=== PATIENT | male | born 1980 | race Caucasian/White ===

== ENCOUNTER → 2020-11-21 | Outpatient (CLI) | payer OTHER, BC ==
--- NOTE | 2020-11-21 20:18 | CONS ---
CONSULTATION REASON FOR CONSULTATION: Sleep apnea. This is a 40-year-old male patient noted by his to snore and to quit breathing for extended periods of time; and for that reason, he was referred to me. The patient is having some degree of sleepiness and tiredness, yet this is not considerably severe. His current [place] score is 10. 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 He does not fall asleep while driving, and whenever busy at work he does not fall asleep and he is able to function reasonably well. He goes to bed around 9:30 p.m., wakes up at 4:20 a.m. in the morning. He does not have any major hypersomnia or sleepiness. He prefers to sleep on his side. He is unable to sleep on his back, as that position is quite uncomfortable. He grinds his teeth overnight. No nocturnal heartburn, chest pain or shortness of breath. He wakes up probably once or twice in the middle of the night to utilize the bathroom. Weight is up by around 75 pounds over the past 10 years. He drinks a cup of coffee in the morning. He does not consume an excessive amount of caffeinated beverages or energy drinks. He is known to have no cardiovascular disease. PAST MEDICAL HISTORY: Negative. PAST SURGICAL HISTORY: Appendectomy. DRUG ALLERGIES: NOT KNOWN. OUTPATIENT MEDICATION: Outpatient medication includes testosterone injections once a month. Last treatment was 3 weeks ago. SOCIAL HISTORY: Nonsmoker. Drinks alcohol socially. No history of substance abuse. FAMILY HISTORY: Mother has RA. Father has hypertension. No sleep apnea in the family. REVIEW OF SYSTEMS: Fourteen-point review of systems was done. Positive for grinding. Negative for insomnia. Negative for choking or gasping for air. Negative for any restlessness in the lower extremities. No sleepwalking or sleeptalking. No anxiety. No depression. No heartburn. No panic attacks. PHYSICAL EXAMINATION: VITAL SIGNS: BP is 104/72, pulse 88, respirations 16, temperature 98.0. Saturation 97% on room air. Height is 6 feet 1 inch, weight is 305 and BMI is 40.2. [place] score is 10. Neck size is 18-1/2 inches. GENERAL APPEARANCE: Calm, comfortable. HEAD: Atraumatic, normocephalic. NECK: Supple. No JVD. No goiter or neck masses. Mallampati class IV. Evidence of grinding of the teeth. LUNGS: Diminished; otherwise clear. HEART: Heart sounds are regular rate and rhythm. Normal S1, S2. No S3, S4. No murmurs. ABDOMEN: Soft, nontender. No organomegaly. EXTREMITIES: No edema. No cyanosis or clubbing. IMPRESSION: 1. Hypersomnia, under investigation with a high suspicion for obstructive sleep apnea based on his history and anatomic features. 2. Grinding of the teeth. 3. Obesity with a BMI of 40.2. PLAN: 1. Encourage weight loss. 2. Continue sleeping on the side. 3. Sleep hygiene measures in general have been adequate for this patient. 4. Proceed with a home sleep study to evaluate this patient for sleep breathing disorder. There is a high likelihood that the patient may have an underlying obstructive sleep apnea; the severity to be determined during the home sleep study. 5. Will continue to follow. MMSYLVIAL / KATHIN: [id number] /
== END ==
LOC: SLEEP 14:48
PROVIDERS: ATTEND Internal Medicine Critical Care Medicine
DX: G47.10 Hypersomnia, unspecified (principal); E66.9 Obesity, unspecified; Z68.41 Body mass index [BMI] 40.0-44.9, adult; G47.63 Sleep related bruxism
CPT/HCPCS: 99211

== ENCOUNTER → 2021-03-27 | Outpatient (CLI) | payer OTHER, BC ==
--- NOTE | 2021-03-27 17:04 | PN ---
PROGRESS NOTE This is a 40-year-old male patient coming in for a PAP compliance check. The patient was quite symptomatic from obstructive sleep apnea. He was having loud snoring. He was quite fatigued and tired and sleepy during the day. Based on that, the patient was given a home sleep study and the patient was found to have mild to moderate obstructive sleep apnea with an AHI of 15. The patient was offered APAP therapy. The patient is coming in today for a compliancy check. He reports there is improvement in his sleep quality and he wants to improve his CPAP compliancy further. Based on a 30-day compliancy data collection, the patient has used his machine 26 out of the past 30 days. His CPAP use for more than 4 hours is 19/30, which is approaching 65%. Average CPAP use while on CPAP is 5 hours. AHI is down to 4.2. Leak is on the order of 29 L/minute and the patient's average pressure delivered by the machine is around 14 cm of water. He is currently using an AirFit F20 large-sized full-face mask. He is interested in other masks, knowing that he tries to sleep on his side, and the full- face mask that he is using is affecting his ability to sleep on his side because of leaks around the mask itself. His weight has been essentially stable, with a few pounds' weight gain since his last evaluation. Nevertheless, he reports clinical improvement while on CPAP therapy. No new complaints otherwise for now. REVIEW OF SYSTEMS: Fourteen-point review of system was done. Positive findings are all mentioned in the history of present illness. PHYSICAL EXAMINATION: VITAL SIGNS: BP is 147/76, pulse 82, respiratory rate 16, temperature 97.3. BMI 40.7. Weight is 309. Height is 6 feet 1 inch. GENERAL APPEARANCE: Calm, comfortable. HEAD: Atraumatic, normocephalic. NECK: Supple. No JVD. No goiter or neck masses. Mallampati class 4. LUNGS: Diminished. Otherwise clear. HEART: Heart sounds are regular rate and rhythm. Normal S1, S2. No S3, S4. No murmurs. ABDOMEN: Soft, nontender. No organomegaly. EXTREMITIES: No edema. No cyanosis or clubbing. IMPRESSION: 1. Symptomatic obstructive sleep apnea, AHI of 15, currently on APAP with adequate clinical response. Compliance needs to be further optimized. 2. Chronic hypersomnia, improved. 3. Grinding of the teeth. 4. Obesity with a BMI of 40.2. PLAN: 1. Continue CPAP therapy with an APAP mode, pressure minimum of 5, maximum of 15. 2. Will change the mask interface. Will offer the patient an AirFit F30 small-sized full-face mask. This mask was tried in the office and the patient gave us excellent feedback and he is willing to try it out and let us know if this is something that he would like to use in the future. I think along with this change in mask interface the patient's compliance is going to further improve. Will do the appropriate adjustments. The patient will see me back in followup in a year's time. I anticipate further improvement in his sleep quality and will continue to follow. MATILDAL / IJN: [id number] /
== END ==
LOC: SLEEP 14:38
PROVIDERS: ATTEND Internal Medicine Critical Care Medicine
DX: G47.33 Obstructive sleep apnea (adult) (pediatric) (principal); E66.9 Obesity, unspecified; Z68.41 Body mass index [BMI] 40.0-44.9, adult; G47.63 Sleep related bruxism; Z99.89 Dependence on other enabling machines and devices

== ENCOUNTER → 2021-07-06 | Outpatient (CLI) | payer OTHER, BC ==
--- NOTE | 2021-07-07 15:35 | US ---
EXAMINATION TYPE: US thyroid st tissue head/neck DATE OF EXAM: 07/06/2021 COMPARISON: NONE CLINICAL HISTORY: R59.0 Localized enlarged lymph nodes. Palpable posterior left ear x 4 weeks. Covid booster x 3 weeks. Area of concern scanned. Lymph node visualized with short axis= 0.6 cm. IMPRESSION: Benign-appearing lymph node at the level of the posterior left tear, site of patient's c linical abnormality, limited scan
== END | disposition home or self-care (01) ==
LOC: RADUSWWP 16:11
PROVIDERS: ATTEND Family Medicine
DX: R59.0 Localized enlarged lymph nodes (principal)
CPT/HCPCS: 76536

== ENCOUNTER → 2022-05-15 | Outpatient (CLI) | payer BC ==
--- NOTE | 2022-05-15 16:40 | US ---
EXAMINATION TYPE: US scrotum with doppler. Grayscale and color Doppler Duplex imaging performed of t nnamdi scrotum. DATE OF EXAM: 05/15/2022 COMPARISON: NONE CLINICAL HISTORY: E29.1 TESTICULAR HYPOFUNCTION. Pt states low testosterone/ pt has no complaints of either testicle EXAM MEASUREMENTS: TESTICLES: Right Testicle: 4.0 x 1.7 x 3.1 cm Left Testicle: 3.8 x 1.7 x 3.3 cm EPIDIDYMIS HEAD: Right Epididymis: 1.1 cm Left Epididymis: 0.9 cm Doppler performed to assess for testicular vascularity; good bilateral color flow and waveforms are s een. Presence of hydroceles: No Presence of varicoceles: Slightly prominent vessel on the left not dilated enough to diagnose varico sukhjinder. IMPRESSION: Symmetric normal-size testicles noted.
== END | disposition home or self-care (01) ==
LOC: RADUSWWP 15:47
PROVIDERS: ATTEND Family Medicine
DX: I86.1 Scrotal varices (principal); N43.3 Hydrocele, unspecified
CPT/HCPCS: 76870; 93975

== ENCOUNTER 2022-12-10 14:50 | Emergency (ER) | payer OTHER, BC ==
[2022-12-10] MEDS ORDERED: ACETAMINOPHEN TAB 325 MG TAB PO STA (15:40)
[2022-12-10] MEDS ORDERED: IBUPROFEN 800 MG TAB PO STA (15:40)
--- NOTE | 2022-12-10 15:45 | ED ---
Upper Extremity HPI - General Chief Complaint: Extremity Injury, Upper Stated Complaint: Rt arm pain Time Seen by Provider: 12/10/22 15:22 Source: patient Mode of arrival: ambulatory Limitations: no limitations - History of Present Illness Initial Comments: This patient is 42-year-old man who presents to have evaluation of right arm pain. Patient states that he was in the active lifting a lawnmower and he felt a pop in his right arm proximal to the elbow. He states that he then noticed that there was a defect in the shape of his muscle. He also has some pain just proximal to the elbow. The patient states she does have range of motion and sensation. Complaint: Injury to:: right -: hour(s) Other Injuries: none Handedness: right Place: work Improves With: none Worsens With: movement of extremity Context: other Associated Symptoms: heard/felt popping sensat (Lifting) - Related Data Previous Rx's Medication Instructions Recorded Ibuprofen [Motrin] 600 mg PO Q8HR PRN #20 tab 12/10/22 Allergies Allergy/AdvReac Type Severity Reaction Status Date / Time No Known Allergies Allergy Verified 12/10/22 15:13 Review of Systems ROS Statement: Those systems with pertinent positive or pertinent negative responses have been documented in the HPI. ROS Other: All systems not noted in ROS Statement are negative. Constitutional: Reports: weakness. Denies: fever, chills Respiratory: Denies: cough, dyspnea (Right arm) Cardiovascular: Denies: chest pain, palpitations Gastrointestinal: Denies: abdominal pain, vomiting Musculoskeletal: Reports: as per HPI, myalgia Skin: Denies: rash Neurological: Denies: weakness, numbness, paresthesias Past Medical History Past Medical History: No Reported History History of Any Multi-Drug Resistant Organisms: None Reported Past Surgical History: Appendectomy Past Psychological History: No Psychological Hx Reported Smoking Status: Never smoker Past Alcohol Use History: None Reported Past Drug Use History: None Reported General Exam Limitations: no limitations General appearance: alert Cardiovascular Exam: Present: other (Normal pulses throughout the right upper extremity normal capillary refill) Right Shoulder Exam: Present: normal inspection, full ROM. Absent: tenderness, swelling Upper Arm exam: Present: normal inspection, full ROM, tenderness, deformity (There does appear to be muscle defect proximal to the right elbow involving the biceps muscle.) Elbow exam: Present: normal inspection, full ROM. Absent: tenderness, swelling Forearm Wrist exam: Present: normal inspection, full ROM. Absent: tenderness, swelling Hand Wrist exam: Present: normal inspection, full ROM. Absent: tenderness, swelling Neurological exam: Present: alert. Absent: motor sensory deficit Skin exam: Present: warm, dry, intact, normal color. Absent: rash Course Vital Signs 12/10/22 12/10/22 15:13 17:27 Temperature 97.5 F L 98.0 F Pulse Rate 94 75 Respiratory 16 18 Rate Blood Pressure 131/71 138/80 O2 Sat by Pulse 97 96 Oximetry Medical Decision Making - Medical Decision Making Patient is a 42-year-old man who has some pain to the distal area of the bicep after lifting injury. Suspect that there is rupture of one of the heads of the bicep muscle. The patient is sent for x-ray, and then will follow with orthopedic surgery. Discussed appropriate further care and follow-up as well as return parameters. The patient had x-ray of the humerus which does not reveal any acute fracture or dislocation. Was pt. sent in by a medical professional or institution (, PA, NAVAL DESIGNER, urgent care, hospital, or prison...) When possible be specific @ -[No] Did you speak to anyone other than the patient for history (EMS, parent, family, police, friend...)? What history was obtained from this source @ -[No] Did you review nursing and triage notes (agree or disagree)? Why? @ -[I reviewed and agree with nursing and triage notes] Were old charts reviewed (outside hosp., previous admission, EMS record, old EKG, old radiological studies, urgent care reports/EKG's, prison records)? Report findings @ -[No old charts were reviewed] Differential Diagnosis (chest pain, altered mental status, abdominal pain women, abdominal pain men, vaginal bleeding, weakness, fever, dyspnea, syncope, headache, dizziness, GI bleed, back pain, seizure, CVA, palpatations, mental health, musculoskeletal)? @ -[Differential Musculoskeletal Muscular strain, contusion, ligament sprain, fracture, arthritis, septic arthritis, bursitis, cellulitis, muscle spasm, nerve compression, DVT, arterial occlusion, herpes zoster, electrolyte abnormality, tumor.... This is not meant to be in all inclusive list EKG interpreted by me (3pts min.). @ -[ X-rays interpreted by me (1pt min.). @ -[As above CT interpreted by me (1pt min.). @ -[None done] U/S interpreted by me (1pt. min.). @ -[None done] What testing was considered but not performed or refused? (CT, X-rays, U/S, labs)? Why? @ -[None] What meds were considered but not given or refused? Why? @ -[None] Did you discuss the management of the patient with other professionals (professionals i.e. DrDell, PA, NAVAL DESIGNER, lab, RT, psych nurse, public health social worker, dandy operator, teacher, real estate loan officer, case briefer)? Give summary @ -[No] Was smoking cessation discussed for >3mins.? @ -[No] Was critical care preformed (if so, how long)? @ -[No] Were there social determinants of health that impacted care today? How? (Homelessness, low income, unemployed, alcoholism, drug addiction, transportation, low edu. Level, literacy, decrease access to med. care, half-way, rehab)? @ -[No] Was there de-escalation of care discussed even if they declined (Discuss DNR or withdrawal of care, Hospice)? DNR status @ -[No] What co-morbidities impacted this encounter? (DM, HTN, Smoking, COPD, CAD, Cancer, CVA, ARF, Chemo, Hep., AIDS, mental health diagnosis, sleep apnea, morbid obesity)? @ -[None] Was patient admitted / discharged? Hospital course, mention meds given and route, prescriptions, significant lab abnormalities, going to OR and other pertinent info. @ -[Discharged to follow-up with orthopedic surgeon Undiagnosed new problem with uncertain prognosis? @ -[No] Drug Therapy requiring intensive monitoring for toxicity (Heparin, Nitro, Insulin, Cardizem)? @ -[No] Were any procedures done? @ -[No] Diagnosis/symptom? @ -[Acute muscle strain/biceps tear Acute, or Chronic, or Acute on Chronic? @ -[Acute Uncomplicated (without systemic symptoms) or Complicated (systemic symptoms)? @ -[Uncomplicated Side effects of treatment? @ -[No] Exacerbation, Progression, or Severe Exacerbation? @ -[No] Poses a threat to life or bodily function? How? (Chest pain, [place], [place], pneumonia, PE, COPD, DKA, ARF, appy, cholecystitis, CVA, Diverticulitis, Homicidal, Suicidal, threat to staff... and all critical care pts) @ -[No] Disposition Clinical Impression: Muscle strain Disposition: HOME SELF-CARE Condition: Fair Instructions (If sedation given, give patient instructions): Muscle Strain (ED) Prescriptions: Ibuprofen [Motrin] 600 mg PO Q8HR PRN #20 tab PRN Reason: Pain Is patient prescribed a controlled substance at d/c from ED?: No Referrals: None,Stated [REFERRING] - 1-2 days Aydin Shafer MD [STAFF PHYSICIAN] - 1-2 days
--- NOTE | 2022-12-10 16:10 | XR ---
EXAMINATION TYPE: XR humerus RT DATE OF EXAM: 12/10/2022 COMPARISON: None HISTORY: Arm pain TECHNIQUE: 2 views humerus FINDINGS: No acute fracture or dislocation is evident. Soft tissues appear normal. Follow-up exams ca n be performed 7-10 days acute trauma for continued pain. IMPRESSION: 1. Unremarkable 2 view humerus
[2022-12-10 17:29] VITALS: BP 138/80; PULSE 75; RESP 18; TEMP 98
== END 2022-12-10 17:29 | disposition home or self-care (01) ==
LOC: EC 14:50
DX: S46.211A Strain of muscle, fascia and tendon of other parts of biceps, right arm, initial encounter (principal); X50.9XXA Other and unspecified overexertion or strenuous movements or postures, initial encounter
CPT/HCPCS: 99283

== ENCOUNTER 2022-12-24 12:33 | Day surgery (SDC) | payer OTHER, BC ==
[2022-12-19 13:59] VITALS: BMI 40.6
[~2022-12-24 12:33] MED LIST: HYDROmorphone 0.5 MG/0.5 ML SYRINGE IVP PRN; LACTATED RINGERS 1,000 ML IV SCH; LIDOCAINE 1% (10MG/ML) FOR IV START INTRADERMA PRN; ceFAZolin 3 GM in SODIUM CHLORIDE 0.9% 100 ML IVPB PRN
[2022-12-24 13:24] VITALS: TEMP 97.3
[2022-12-24] MEDS ORDERED: LACTATED RINGERS 1,000 ML IV ONE (13:35)
[2022-12-24] MEDS: DEXAMETHASONE SOD PHOSPHATE 4 MG/ML 1 ML VIAL IV ONE (13:44)
[2022-12-24] MEDS: ONDANSETRON 4 MG/2 ML VIAL IVP ONE (13:44)
[2022-12-24] MEDS: MIDAZOLAM 2 MG/2 ML VIAL IV PRN ×2 (13:58→14:03)
--- NOTE | 2022-12-24 14:10 | P.ANPRN ---
Procedure Note - Anesthesia - Nerve Block Performed Right Supraclavicular Time Out Performed: Yes (13:57) Date of Procedure: 12/24/22 Procedure Start Time: :57 Procedure Stop Time: 14:03 Location of Patient: PreOp Indication: Acute Post-Operative Pain, Requested by Surgeon (Dr Rubio) Sedation Type: Sedate with meaningful contact maintained Preparation: Sterile Prep Position: Supine Catheter: None Needle Types: Pajunk Needle Gauge: Other (see comment) (22g) Ultrasound used to visualize needle placement: Yes Ultrasound used to observe medication spread: Yes Injectate: 0.5% Ropivacaine (see comment for volume) (20cc + decadron 4mg) Blood Aspirated: No Pain Paresthesia on Injection Noted: No Resistance on Injection: Normal Image Stored and Saved: Yes Events: Uneventful and Well Tolerated
[2022-12-24] MEDS ORDERED: LIDOCAINE 2% INJ 20 MG/ML (2 ML VIAL) ONE (14:45)
[2022-12-24] MEDS ORDERED: SUCCINYLCHOLINE CHLORIDE 200 MG/10 ML VIAL IV ONE (14:45)
[2022-12-24] MEDS ORDERED: ROPIVACAINE 5 MG/ML 30 ML VIAL ONE (14:45)
[2022-12-24] MEDS ORDERED: PROPOFOL 10 MG/ML 20 ML VIAL IV ONE (14:45)
[2022-12-24] MEDS ORDERED: MIDAZOLAM 2 MG/2 ML VIAL ONE (14:45)
[2022-12-24] MEDS ORDERED: DEXAMETHASONE SOD PHOSPHATE 4 MG/ML 1 ML VIAL ONE (14:45)
[2022-12-24] MEDS ORDERED: fentaNYL (PF) 50 MCG/ML 2 ML AMP ONE (14:45)
[2022-12-24 16:36] VITALS: RESP 16
[2022-12-24 17:53] VITALS: BP 132/75; PULSE 92
--- NOTE | 2023-01-08 12:49 | P.OP ---
Date of Procedure: 12/24/22 Preoperative Diagnosis: Right distal biceps tendon rupture Postoperative Diagnosis: same Procedure(s) Performed: Right distal biceps tendon repair Implants: Arthrex, endobutton Anesthesia: neo GARCIA Surgeon: Phyllis Rubio Motor Tune Up Specialist #1: Katerine Newell Estimated Blood Loss (ml): 20 Condition: stable Disposition: PACU Indications for Procedure: Zachery was moving a mold bunch trimmer on 12/10/22 when he felt a pop in his elbow. MRI showed retracted distal biceps tear. The patient is very active and would like to proceed with surgical fixation. Description of Procedure: The patient, operative extremity, and procedure were identified in the preoperative holding area. After informed consent was obtained, the patient received a regional block by the anesthesia team. They were then brought back to the operating room where the extremity was then prepped and draped in normal sterile fashion with a tourniquet on the patients brachium. A formal timeout was performed and the tourniquet was inflated to 250mmHg. A transverse incision was made 2.5cm distal from the AC crease. The cubital fossa was identified and the interval between the biceps and brachioradialis was developed. The LABC nerve was identified and protected. The biceps tendon stump was palpated proximally and an oblique extension was made to the incision. The tendon stump was grasped with an zaid clamp and pulled out of the wound. The end was cleaned and mobilized. The fiberwire loop was used to secure the distal end with a grasping stitch. It measured 7mm in diameter. Blunt dissection was used to access the radial tuberosity. The forearm was held in supination as the radial tuberosity was scraped with a mosher elevator. The first drill was inserted into the radial tuberosity. The 8mm reamer was then used on the near cortex. The distal biceps fiberwire was then threaded onto the button. The ends were then taken back through the distal biceps with a free needle. The button was then inserted through both cortices and flipped past the far cortex. The free ends of the suture were then used to cinch the tendon into the intramedullary space. The elbow was flexed 60 degrees to accommodate full seating of the tendon into the space. There was a good fit. The button placement was confirmed on fluoroscopy. An additional bite was taken in the biceps tendon with one end of the fiberwire and the ends were tied. Tourniquet was then let down, hemostasis was achieved and the wound was closed in a layered fashion with 3.0 vicryl, 4.0 monocryl, and skin glue. Wound was dressed with adaptic, gauze, [place], ABD, and an kennedi wrap. Patient was placed in a sling with a posterior long arm splint. Patient was aroused by the anesthesia team and brought back to PACU in stable condition.
== END 2022-12-24 18:02 | disposition home or self-care (01) ==
LOC: OR 12:33
PROVIDERS: ATTEND Orthopaedic Surgery Hand Surgery
DX: S46.211A Strain of muscle, fascia and tendon of other parts of biceps, right arm, initial encounter (principal); G89.18 Other acute postprocedural pain; G47.33 Obstructive sleep apnea (adult) (pediatric); Z90.49 Acquired absence of other specified parts of digestive tract; Z86.59 Personal history of other mental and behavioral disorders; Z79.899 Other long term (current) drug therapy; X58.XXXA Exposure to other specified factors, initial encounter
CPT/HCPCS: 64415; 24342; C1713; J2250; J0330; J1100; J0690; J2405; J3010; J2795; J2704; J2001

== ENCOUNTER → 2024-10-18 | Outpatient (CLI) | payer OTHER, BC ==
--- NOTE | 2024-10-18 08:24 | US ---
EXAMINATION TYPE: US liver DATE OF EXAM: 10/18/2024 COMPARISON: NONE CLINICAL INDICATION: Male, 44 years old with history of R94.5 ABNORMAL RESULTS OF LIVER FUNCTION STUD IES; abn labs, no symptoms TECHNIQUE: Grayscale and color Doppler imaging of the right upper quadrant was performed. FINDINGS: EXAM MEASUREMENTS: Liver Length: 20.3 Gallbladder Wall: 0.3m CBD: 0.7m Right Kidney: 11.7 x 5.5 x 6.1 VENTILATOR SPECIALIST NOTES:habitus and bowel gas limits exam Pancreas: mostly obscured by bowel gas Liver: enlarged and difficult to penetrate Gallbladder: wnl Evidence for sonographic Shafer's sign: no CBD: wnl Right Kidney: wnl Suboptimal evaluation of pancreas. Visualized portions unremarkable. Hepatomegaly is seen. Visualized liver is heterogeneously hyperechoic. Evaluation for focal masses is suboptimal due to the heterogen eity. No ascites is seen. Minimal dilatation of the common bile duct is noted. IMPRESSION: Hepatomegaly with heterogeneous hyperechoic appearance of liver consistent with diffuse f atty infiltration and/or underlying hepatocellular disease. [facility], , 10/18/2024 8:22 AM
== END | disposition home or self-care (01) ==
LOC: RADUSWWP 07:11
PROVIDERS: ATTEND Family Medicine
DX: R16.0 Hepatomegaly, not elsewhere classified (principal); R94.5 Abnormal results of liver function studies; K83.8 Other specified diseases of biliary tract
CPT/HCPCS: 76705